=== PATIENT | male | born 1960 | race Caucasian/White ===

== ENCOUNTER 2017-01-07 03:51 | Inpatient (IN) | payer MEDICAID ==
[~2017-01-07] VITALS: Ht 170.2 cm; Wt 86.6 kg
[~2017-01-07 03:51] MED LIST: CLA10 PO; COLACE100 MG PO; IPRATROPIUM BROM3 M2 HHN; LAC PO; LEVAQUIN750 MG PO; MEDDP PO; NORCO1 TA2 PO; NPHOS PO; PEP20 PO; PROVENTIL0.09 MG/A1 INH; SING10 PO; SUDAFED CONGEST30 MG PO; ZIT250 PO; ZITHROMAX500 MG PO
[2017-01-07 04:41] LABS: BASOPHIL % 0.4 % (0-2); PLATELET COUNT 161 x10^3mcL (130-400); RED CELL DISTRIBUTION WIDTH 13.3 % (11.5-14.5)
[2017-01-07 05:00] LABS: CK-MB 16.5 ng/mL (0-3.6)
[2017-01-07 06:31] LABS: CALCIUM 8.4 mg/dL (8.5-10.1); CARBON DIOXIDE 29.5 mmol/L (21-32); CHLORIDE SERUM 108 mmol/L (98-107); CREATININE SERUM 0.9 mg/dL (0.7-1.3); GFR1 > 60 mL/min; GLUCOSE SERUM 108 mg/dL (74-106); POTASSIUM SERUM 4.1 mmol/L (3.5-5.1); SODIUM SERUM 143 mmol/L (136-145)
[2017-01-07 06:36] LABS: ALBUMIN 3.6 g/dL (3.4-5.0); ALKALINE PHOSPHATASE 95 U/L (46-116); ALT/SGPT 36 U/L (16-63); AST/SGOT 32 U/L (15-37); BILIRUBIN TOTAL 0.4 mg/dL (0.20-1.00); TOTAL PROTEIN, SERUM 6.6 g/dL (6.4-8.2)
[2017-01-07 09:48] VITALS: BP 125/55
[2017-01-07 13:03] VITALS: BP 106/48
[2017-01-07 17:18] VITALS: BP 123/72
[2017-01-07 18:37] VITALS: BP 123/71
[2017-01-07 21:35] VITALS: BP 141/56
[2017-01-07 23:59] VITALS: Ht 170.2 cm; Wt 86.6 kg
[2017-01-08 05:38] VITALS: BP 130/56
[2017-01-08 07:33] LABS: PLATELET COUNT 162 x10^3mcL (130-400); RED CELL DISTRIBUTION WIDTH 13.5 % (11.5-14.5)
[2017-01-08 07:40] LABS: T3 TOTAL 0.78 ng/mL
[2017-01-08 07:52] LABS: CARBON DIOXIDE 27.8 mmol/L (21-32); CHLORIDE SERUM 107 mmol/L (98-107); CREATININE SERUM 0.8 mg/dL (0.7-1.3); GFR1 > 60 mL/min; GLUCOSE SERUM 128 mg/dL (74-106); POTASSIUM SERUM 4.1 mmol/L (3.5-5.1); SODIUM SERUM 141 mmol/L (136-145)
[2017-01-08 08:18] LABS: BAND NEUTROPHIL 2 % (0-10); BASOPHIL 0 % (0-2); MONOCYTE 4 % (0-7); SEGMENTED NEUTROPHILS 89 % (37-75)
[2017-01-08 08:26] LABS: CHOLESTEROL/HDL RATIO 2.9; MAGNESIUM 2.1 mg/dL (1.8-2.4); PHOSPHOROUS 2.7 mg/dL (2.5-4.9)
[2017-01-08 08:27] LABS: FREE T4 0.84 ng/dL (0.76-1.46); T4(THYROXINE) 6.4 ug/dL (4.7-13.3)
[2017-01-08] MEDS ORDERED: MEDDP PO (09:34)
[2017-01-08 10:05] VITALS: BP 123/63
[2017-01-08] MEDS ORDERED: PROVENTIL0.09 MG/A1 INH (13:01)
[2017-01-08] MEDS ORDERED: PULMICORT180 MCG/Ac INH (13:03)
[2017-01-08 13:10] VITALS: BP 124/66
== END 2017-01-08 14:25 | disposition home or self-care (01) | DRG 141 ==
LOC: ED 03:51 → DU 05:45
PROVIDERS: Emergency Medicine; ADMIT Family Medicine
DX: J45.901 Unspecified asthma with (acute) exacerbation (principal); J96.00 Acute respiratory failure, unspecified whether with hypoxia or hypercapnia; I10 Essential (primary) hypertension; D72.829 Elevated white blood cell count, unspecified; T38.0X5A Adverse effect of glucocorticoids and synthetic analogues, initial encounter; Y92.018 Other place in single-family (private) house as the place of occurrence of the external cause
CPT/HCPCS: 83880; 84439; J1956; J2920; J7512; J7613; J7620; J7644; Q0092